=== PATIENT | male | born 1960 | race Caucasian/White ===

== ENCOUNTER → 2020-03-02 19:40 | Outpatient (CLI) | payer SELFPAY ==
[2020-03-02 21:37] LABS: ALBUMIN 3.8 g/dL (3.4-5.0); ALKALINE PHOSPHATASE 62 U/L (30-120); ALT (SGPT) 42 U/L (10-68); BILIRUBIN - TOTAL 0.25 mg/dL (0.2-1.3); CALC OSMOLALITY 266 mosm/kg (275-300); CALCIUM 9.4 mg/dL (8.5-10.1); CARBON DIOXIDE 22.9 mmol/L (21.0-32.0); CHLORIDE - SERUM 101 mmol/L (98-107); CHOLESTEROL, TOTAL 261 mg/dL (0-200); GLUCOSE 94 mg/dL (74-106); HDL CHOLESTEROL 65 mg/dL (32-96); LDL CHOLESTEROL 128 mg/dL (0-100); POTASSIUM - SERUM 4.3 mmol/L (3.5-5.1); PROTEIN - SERUM 6.9 g/dL (6.4-8.2); SODIUM 134 mmol/L (136-145); T4 THYROXIN - FREE 0.91 ng/dL (0.76-1.46); THYROID STIMULATING HORMONE 3.76 uIU/mL (0.36-3.74); TRIGLYCERIDE 343 mg/dL (30-200); UREA NITROGEN 10 mg/dL (7-18); eGFR NON AFRICAN AMERICAN 81 mL/min (90-120)
== END | disposition home or self-care (01) ==
LOC: D.LABREF 19:40
PROVIDERS: ATTEND Legal Medicine
DX: I10 Essential (primary) hypertension (principal); E55.9 Vitamin D deficiency, unspecified; E29.1 Testicular hypofunction

== ENCOUNTER → 2020-08-26 15:09 | Outpatient (CLI) | payer BC | END | disposition home or self-care (01) | LOC: D.RAD 15:09 | PROVIDERS: ATTEND Emergency Medicine | DX: M25.511 Pain in right shoulder (principal) ==